=== PATIENT | male | born 1945 | race African-American/Black ===

== ENCOUNTER 2017-12-27 09:22 | Outpatient (CLI) | payer MEDICARE ==
[2017-12-27] MEDS ORDERED: Iopamidol 370 76% 100 ML VIAL ONE (12:31)
== END 2017-12-27 09:23 | disposition home or self-care (01) ==
LOC: BICCT 09:22
PROVIDERS: ATTEND Internal Medicine Gastroenterology
DX: K59.00 Constipation, unspecified (principal); R63.4 Abnormal weight loss; R93.3 Abnormal findings on diagnostic imaging of other parts of digestive tract
CPT/HCPCS: 74177

== ENCOUNTER 2018-01-10 13:25 | Outpatient (CLI) | payer MEDICARE ==
[2018-01-10] MEDS ORDERED: Gadobenate Dimeglumine 529 MG/1 ML (20ML VIAL) ONE (13:30)
--- NOTE | 2018-01-10 14:57 | MRI ---
BRAIN MRI WITH AND WITHOUT CONTRAST: COMPARISON: 12/14/16, 10/28/15. HISTORY: Malignant neoplasm of the brain, unspecified. Followup examination. TECHNIQUE: Brain MRI was performed with and without intravenous Gadolinium administration. Multisequential, mul tiplanar imaging was performed. FINDINGS: Stable hemosiderin deposition in the posterior right temporal lobe. No evidence of acute parenchymal hemorrhage. No significant T2 or FLAIR white matter hyperintensities. Central arterial flow voids are maintained . Absent restricted diffusion. Mucosal thickening of the paranasal sinuses. Right ocular lens implant. Adequate aeration of the le ft mastoid air cells. Stable postsurgical changes in the right temporal bone. Persistent signal abnormality centered in the right temporal bone extending medially into the region of the petrous apex. There is associated T2 hyperintensity and enhancement. The area of enhancement measures 2.7 cm (previously measuring 3.3 cm). No areas of abnormal intraaxial enhancement are appr eciated. Abnormal enhancement extends inferiorly along the course of the right jugular vein and dex cent to the distal cervical and petrous segment of the right internal carotid artery. There is persi stent abnormal enhancement along the clivus. No pathologic enhancement of the brain parenchyma. 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 POS: [facility]
== END 2018-01-10 13:26 | disposition home or self-care (01) ==
LOC: TBSIIMAG 13:25
PROVIDERS: ATTEND Neurological Surgery
DX: C71.9 Malignant neoplasm of brain, unspecified (principal); D16.4 Benign neoplasm of bones of skull and face
CPT/HCPCS: 70553; A9579

== ENCOUNTER 2019-01-12 11:58 | Emergency (ER) | payer MEDICARE ==
[2019-01-12 12:37] LABS: #Basophils 0.1 thou/uL (0.0-0.2); #Eosinphils 0.2 thou/uL (0.0-0.7); #Lymphocytes 1.9 thou/uL (1.20-3.40); #Monocytes 0.6 thou/uL (0.11-0.59); #Neutrophils 1.8 thou/uL (1.40-6.50); %Basophils 1.3 % (0.0-1.0); %Eosinophils 3.6 % (0.0-10.0); %Lymphocytes 41.7 % (21.0-51.0); %Neutrophils 39.4 % (42.0-75.0); Hemoglobin 14.8 g/dL (14.0-18.0); Mean Corpuscular HGB CONC 31.6 g/dL (32.0-36.0); Mean Corpuscular Hemoglobin 26.4 pg (27.0-31.0); Mean Corpuscular Volume 83.4 fL (78.0-98.0); Platelet Count 214 thou/uL (130-400); RBC Distribution Width 13.6 % (11.5-14.5); Red Blood Cell (RBC) Count 5.61 mill/uL (4.70-6.10); White Blood Cell (WBC) Count 4.6 thou/uL (4.8-10.8)
[2019-01-12 12:58] LABS: ALT (SGPT) 10 U/L (8-55); AST (SGOT) 17 U/L (5-34); Albumin 4.2 g/dL (3.4-4.8); Alkaline Phosphatase 87 U/L (40-150); Anion Gap 14 mmol/L (10-20); BUN (Urea Nitrogen) 15 mg/dL (8.4-25.7); Bilirubin, Total 0.5 mg/dL (0.2-1.2); Calc. Creatinine Clearance 0 mL/min (70-130); Calcium 9.5 mg/dL (7.8-10.44); Carbon Dioxide 24 mmol/L (23-31); Chloride 106 mmol/L (98-107); Estimated GFR-MDRD 72; Globulin 3.4 g/dL (2.4-3.5); Glucose 91 mg/dL (83-110); Potassium 4.2 mmol/L (3.5-5.1); Protein, Total 7.6 g/dL (5.8-8.1); Sodium 140 mmol/L (136-145)
--- NOTE | 2019-01-12 14:18 | RAD ---
LEFT FOOT TWO VIEWS: HISTORY: Foot pain. COMPARISON: None. FINDINGS: Only two views of the foot are sent for interrogation. No acute fracture or malalignment. There is an old medial hallux sesamoid fracture. Lisfranc interval appears to be maintained. No erosions or periostitis. IMPRESSION: No radiographic appearance of osteomyelitis. If there is clinical concern, MRI is recommended. POS: [facility]
== END 2019-01-12 15:17 | disposition home or self-care (01) ==
LOC: ERS 11:58
DX: E11.621 Type 2 diabetes mellitus with foot ulcer (principal); L97.529 Non-pressure chronic ulcer of other part of left foot with unspecified severity; I10 Essential (primary) hypertension; E66.9 Obesity, unspecified; Z79.899 Other long term (current) drug therapy
CPT/HCPCS: 36415; 80053; 85025

== ENCOUNTER 2019-01-18 09:06 | Outpatient (CLI) | payer MEDICARE ==
[2019-01-18] MEDS ORDERED: Lidocaine 2% 11 ML SYR ONE (18:00)
[2019-01-18] MEDS ORDERED: Sodium Chloride 0.9% 15 ML NEB ONE (18:00)
--- NOTE | 2019-01-18 22:47 | HP ---
HISTORY OF PRESENT ILLNESS: Mr. Ralph Peters is a very pleasant 73-year-old gentleman who presents to the Wound Center for evaluation of an ulceration of the plantar surface of the left medial forefoot. The patient is accompanied by his son. He states that the ulceration was first noted approximately 3 weeks ago. He states he is not sure as to what caused the ulceration. He states that he may have stepped on a scorpion or alternatively burned his left medial plantar forefoot from hot water. The patient states that he was seen at a clinic for the ulceration and from there, referred to the emergency department. He states that after being seen in the emergency department at [facility], he was referred to the Wound Center for further evaluation and treatment. The patient states that he has been dressing the ulceration with triple antibiotic ointment followed by Bordered gauze on a daily basis after cleansing and irrigation. PAST MEDICAL HISTORY: 1. Diabetes mellitus. 2. Hypertension. PAST SURGICAL HISTORY: 1. Craniotomy for resection of tumor. 2. Shunt placement prior to craniotomy. MEDICATIONS: 1. Amlodipine. 2. Vitamin A. 3. Multivitamin. 4. Fish oil. 5. Dulcolax. 6. Vinegar tablet. 7. Amlodipine. 8. Vitamin A. 9. Multivitamin. 10. Fish oil. 11. Dulcolax. 12. Vinegar tablet. 13. Cream for eczema. ALLERGIES: VITAMIN C, STATINS, LIPITOR, SHELLFISH. SOCIAL HISTORY: Social history is negative for tobacco use. The patient admits to only the occasional consumption of alcohol. FAMILY HISTORY: Family history is negative for diabetes mellitus or coronary artery disease. PHYSICAL EXAMINATION: VITAL SIGNS: Temperature 98.1, pulse 100, respirations 20, blood pressure 197/101. GENERAL: A 73-year-old gentleman, sitting on table in examination room, in no acute distress. HEENT: Normocephalic and atraumatic. NECK: No nuchal rigidity. CHEST: Clear to auscultation. CV: Regular rate and rhythm. ABDOMEN: Soft. EXTREMITIES: An ulceration of the plantar surface of the left medial forefoot is present. The dimensions of the wound are approximately 1.8 x 1.1 cm. Granulation tissue is present within the wound margins. Necrotic and nonviable tissue present within the wound margins which was debrided with an excisional full-thickness debridement with the use of a curette. No purulent drainage is associated with the wound. No erythema of the skin surrounding the wound is present. No maceration of the skin of the periwound is noted. A dorsalis pedis pulse and posterior tibial pulse are both palpable on the left. No significant edema of the left foot is appreciated on exam today. 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 ASSESSMENT AND PLAN: 1. Ulceration of plantar surface of left medial forefoot. Dressing changes of Medihoney and Mepilex border will be initiated today. These dressing changes are to be performed 3 times per week after cleansing and irrigation with the assistance of Home Health. 4x4s will be utilized as needed at the time of dressing changes. No antibiotics will be prescribed today based upon the appearance of the wound. I will see Mr. Peters again in 1 week. The patient will also be seen by the sander operator for fitting with diabetic shoes with inserts at the time of one of his followup visits. 2. Diabetes mellitus. The patient has been told that for optimal wound healing his blood glucoses should remain below 150. 3. Hypertension. Job ID: [id number]
== END 2019-01-18 09:07 | disposition home or self-care (01) ==
LOC: WCC 09:06
PROVIDERS: ATTEND Family Medicine
DX: E11.621 Type 2 diabetes mellitus with foot ulcer (principal); L97.429 Non-pressure chronic ulcer of left heel and midfoot with unspecified severity; I10 Essential (primary) hypertension
CPT/HCPCS: A4218

== ENCOUNTER 2019-01-31 09:36 | Outpatient (CLI) | payer MEDICARE ==
--- NOTE | 2019-01-31 10:09 | PRG ---
DATE OF SERVICE: 01/31/2019 HISTORY: Mr. Ralph Peters is a very pleasant 73-year-old gentleman, who presents to the Wound Center for evaluation of an ulceration of the plantar surface of the left medial forefoot. The patient previously stated that the ulceration was first noted approximately 3 weeks prior to his initial presentation to the Wound Center. He stated that he was not sure as to what caused the ulceration. He stated that he may have stepped on a scorpion or alternatively burned his left medial plantar forefoot from hot water. The patient stated that he was seen at a clinic for the ulceration, and from there, referred to the emergency department. He stated that after being seen in the emergency department at [facility], he was referred to the Wound Center for further evaluation and treatment. The patient stated that he had been dressing the ulceration with triple antibiotic ointment followed by Bordered gauze on a daily basis after cleansing and irrigation prior to being seen in the Wound Center. PHYSICAL EXAMINATION: VITAL SIGNS: Temperature 97.6, pulse 92, respirations 17, blood pressure 190/96. EXTREMITIES: An ulceration of the plantar surface of the left medial forefoot is present. The dimensions of the wound are approximately 1.2 x 1.0 cm. Granulation tissue is present within the wound margins. Necrotic and nonviable tissue present within the wound margins was debrided with an excisional full-thickness debridement with the use of a curette. Callus and desiccated tissue at the periphery of the wound were excised with the use of scissors. No purulent drainage is associated with the wound. No erythema of the skin surrounding the wound is present. No maceration of the skin of the periwound is noted. No significant edema of the left foot is present on exam today. ASSESSMENT AND PLAN: 1. Ulceration of plantar surface of left medial forefoot. Dressing changes of Medihoney and Mepilex border will be continued 3 times per week after cleansing and irrigation with the assistance of Home Health. 4x4's will be utilized as needed at the time of dressing changes. I will see Mr. Peters again in 2 weeks. The patient has been seen by the bulk tank car unloader today for fitting with diabetic shoes with inserts. 2. Diabetes mellitus. The patient has been reminded that for optimal wound healing, his blood glucoses should remain below 150. Accu-Cheks will be obtained at the time of the patient's clinic visits. 3. Hypertension. Job ID: [id number]
[2019-01-31] MEDS ORDERED: Lidocaine 2% 11 ML SYR ONE (18:00)
[2019-01-31] MEDS ORDERED: Sodium Chloride 0.9% 15 ML NEB ONE (18:00)
== END 2019-01-31 09:37 | disposition home or self-care (01) ==
LOC: WCC 09:36
PROVIDERS: ATTEND Family Medicine
DX: E11.621 Type 2 diabetes mellitus with foot ulcer (principal); L97.429 Non-pressure chronic ulcer of left heel and midfoot with unspecified severity; I10 Essential (primary) hypertension
CPT/HCPCS: 11042; A4218

== ENCOUNTER 2019-02-14 15:34 | Outpatient (CLI) | payer MEDICARE ==
--- NOTE | 2019-02-14 09:58 | PRG ---
DATE OF SERVICE: 02/14/2019 HISTORY: Mr. Ralph Peters is a very pleasant 73-year-old gentleman, who presents to the wound center for evaluation of an ulceration of the plantar surface of the left medial forefoot. The patient previously stated that the ulceration was first noted approximately 3 weeks prior to his initial presentation to the wound center. He stated that he was not sure as to what caused the ulceration. He stated that he may have stepped on a scorpion or alternatively burned his left medial plantar forefoot from hot water. The patient stated that he was seen at the clinic for the ulceration and from there, referred to the Emergency Department. He stated that after being seen in the Emergency Department at [facility], he was referred to the wound center for further evaluation and treatment. The patient stated that he had been dressing the ulceration with triple antibiotic ointment followed by Bordered gauze on a daily basis after cleansing and irrigation prior to being seen in the wound center. After being seen in the wound center, the patient was placed on dressing changes of Medihoney. PHYSICAL EXAMINATION: VITAL SIGNS: Temperature 97.7, pulse 78, respirations 19, and blood pressure 197/93. EXTREMITIES: The ulceration of the plantar surface of the left medial forefoot measures approximately 3.2 x 1.0 cm. Nonviable tissue associated with the wound was debrided with an excisional partial thickness debridement with the use of scissors and a curette. No purulent drainage is associated with the wound. No erythema of the skin surrounding the wound is present. No maceration of the skin of the periwound is noted. No significant edema of the left foot is present on exam today. ASSESSMENT AND PLAN: 1. Ulceration of plantar surface of left medial forefoot. The wound is healing without complications or any signs of infection. The patient will return to clinic in 1 to 2 weeks. At this time, he will also be seen by the pet nutrition specialist for fitting with diabetic shoes with inserts. 2. Diabetes mellitus. The patient has been reminded that for optimal wound healing his blood glucoses should remain below 150. Accu-Cheks will be obtained at the time of the patient's clinic visits. 3. Hypertension. Job ID: [id number]
[~2019-02-14 15:34] MED LIST: Sodium Chloride 0.9% 15 ML NEB ONE
== END 2019-02-14 15:35 | disposition home or self-care (01) ==
LOC: WCC 15:34
PROVIDERS: ATTEND Family Medicine
DX: E11.622 Type 2 diabetes mellitus with other skin ulcer (principal); L97.429 Non-pressure chronic ulcer of left heel and midfoot with unspecified severity; I10 Essential (primary) hypertension
CPT/HCPCS: 97597; A4218

== ENCOUNTER 2020-01-29 13:21 | Outpatient (CLI) | payer MEDICARE ==
[2020-01-29] MEDS ORDERED: Magnevist 469MG/ML 20 ML VIAL ONE (14:22)
--- NOTE | 2020-01-29 15:00 | MRI ---
BRAIN MRI WITH AND WITHOUT CONTRAST: 01/29/20 COMPARISON: Numerous prior brain MRIs dating back to 2015. HISTORY: Brain neoplasm. TECHNIQUE: Multiplanar and multisequence MR imaging of the brain is provided with and without contrast. FINDINGS: The diffusion weighted imaging demonstrates no evidence for acute infarction. The paranasal sinuses appear grossly unremarkable. The axial gradient echo imaging demonstrates no evidence for intracranial hemorrhage. There is no mid line shift or mass effect. No ventricular enlargement is noted. Arterial flow voids at the axial level of the skull base appear grossly unremarkable on the T2 weight ed imaging. There is diffuse dural thickening and dural enhancement involving the supratentorial and infratentori al regions, right greater than left, unchanged when compared to the 2019 examination. There is postsurgical distortion of the mastoid air cells on the right, stable when compared to the p rior examination. There is an ill-defined area of enhancement involving the inferior/medial aspect of the mastoid air cells, petrous apex on the right posterior to the distal cervical aspect of the left internal carotid artery. On this examination, this area of enhancement centered in the petrous apex measures 4.7 cm in transverse dimension, 1.7 cm in AP dimension, and approximately 1.9 cm in greatest craniocaudal dimension, unchanged when compared to the 01/10/18 exam. The postcontrast imaging demons trates no abnormal intra-axial enhancement. There is no midline shift or mass effect appreciated. IMPRESSION: Stable contrast enhanced brain MRI. There is a stable enhancing mass associated with the medial aspec t of the right temporal bone in the region of the petrous apex. Findings appear unchanged when compared to studies dating back to 2014. POS: [facility]
== END 2020-01-29 13:22 | disposition home or self-care (01) ==
LOC: TBSIIMAG 13:21
PROVIDERS: ATTEND Neurological Surgery
DX: C71.9 Malignant neoplasm of brain, unspecified (principal); G93.89 Other specified disorders of brain
CPT/HCPCS: 70553; 82565; A9579

== ENCOUNTER 2021-11-01 15:41 | Inpatient (IN) | payer MEDICARE ==
[~2021-11-01 15:41] MED LIST changes: +Iopamidol-370 76% 500 ML 1 ML ONE; -Sodium Chloride 0.9% 15 ML NEB ONE
[2021-11-01] MEDS ORDERED: Cefepime 2 GM VIAL ONE (16:19)
[2021-11-01 16:32] LABS: #Basophils 0.1 thou/uL (0.0-0.2); #Eosinphils 0.1 thou/uL (0.0-0.7); #Lymphocytes 1.5 thou/uL (1.20-3.40); #Monocytes 1.1 thou/uL (0.11-0.59); #Neutrophils 5.7 thou/uL (1.40-6.50); %Basophils 0.9 % (0.0-1.0); %Eosinophils 0.7 % (0.0-10.0); %Lymphocytes 17.4 % (21.0-51.0); %Monocytes 13.3 % (0.0-10.0); %Neutrophils 67.7 % (42.0-75.0); Hemoglobin 13.7 g/dL (14.0-18.0); Mean Corpuscular HGB CONC 33.5 g/dL (32.0-36.0); Mean Corpuscular Volume 80.7 fL (78.0-98.0); Platelet Count 344 thou/uL (130-400); RBC Distribution Width 13.9 % (11.5-14.5); Red Blood Cell (RBC) Count 5.08 mill/uL (4.70-6.10); White Blood Cell (WBC) Count 8.3 thou/uL (4.8-10.8)
[2021-11-01 16:52] LABS: ALT (SGPT) 35 U/L (8-55); AST (SGOT) 31 U/L (5-34); Alkaline Phosphatase 93 U/L (40-110); Anion Gap 14 mmol/L (10-20); BUN (Urea Nitrogen) 14 mg/dL (8.4-25.7); Bilirubin, Total 0.4 mg/dL (0.2-1.2); Calc. Creatinine Clearance 0 mL/min (70-130); Carbon Dioxide 24 mmol/L (23-31); Chloride 100 mmol/L (98-107); Globulin 4.3 g/dL (2.4-3.5); Glucose 120 mg/dL (83-110); Protein, Total 7.3 g/dL (5.8-8.1); Sodium 134 mmol/L (136-145)
[2021-11-01] MEDS ORDERED: Vancomycin 1 GM/200 ML BAG ONE (18:58)
[2021-11-01] MEDS ORDERED: Ondansetron PF 4 MG/2 ML Vial IVP PRN (20:50)
[2021-11-01] MEDS ORDERED: Acetaminophen 325 MG TAB PO PRN (20:50)
[2021-11-01 21:09] VITALS: BMI 37.0
[2021-11-02] MEDS: HYDROcodone/Acetaminophen 5/325 mg Tablet PO PRN (01:15)
[2021-11-02] MEDS: Cefepime 2 GM in Sodium Chloride 0.9% 100 ML IVPB SCH ×2 (04:27→15:55)
[2021-11-02 07:55] LABS: Anion Gap 13 mmol/L (10-20); BUN (Urea Nitrogen) 14 mg/dL (8.4-25.7); Calc. Creatinine Clearance 94 mL/min (70-130); Calcium 8.6 mg/dL (7.8-10.44); Carbon Dioxide 23 mmol/L (23-31); Chloride 101 mmol/L (98-107); Glucose 94 mg/dL (83-110); Potassium 4.1 mmol/L (3.5-5.1); Sodium 133 mmol/L (136-145)
[2021-11-02 08:04] LABS: Hemoglobin 12.9 g/dL (14.0-18.0); Mean Corpuscular HGB CONC 31.5 g/dL (32.0-36.0); Mean Corpuscular Hemoglobin 25.3 pg (27.0-31.0); Mean Corpuscular Volume 80.3 fL (78.0-98.0); Mean Platelet Volume 6.3 fL (7.4-10.4); Platelet Count 349 thou/uL (130-400); RBC Distribution Width 13.8 % (11.5-14.5); White Blood Cell (WBC) Count 7.8 thou/uL (4.8-10.8)
[2021-11-02 08:18] LABS: Hemoglobin A1c 5.7 % (4.0-6.0)
[2021-11-02] MEDS ORDERED: FLU VACC QS2021-22(65YR UP)/PF 240 MCG/0.7 ML SYRINGE IM ONE (09:00)
[2021-11-02 11:18] LABS: Band 7 % (5-11); Eosinophils 1 % (0-10); Lymphocytes 25 % (21-51); MDiff Complete? YES; Metamyelocyte 2 % (0-0); Monocytes 13 % (0-10); Myelocyte 1 % (0-0); Neutrophil 50 % (42-75); RBC Morphology Normal; Reactive Lymphocytes 2 % (0-10)
[2021-11-02 14:37] LABS: SARS-CoV-2 PCR by NAA Not Detected (NotDetected)
[2021-11-02] MEDS ORDERED: hydrALAZINE 20 MG/ML VIAL SLOW IVP PRN (17:24)
[2021-11-02] MEDS: VANCOMYCIN 2 GRAM/400 ML BAG 2 GM in Premix Bag 1 BAG IVPB SCH (17:54)
[2021-11-02] MEDS ORDERED: Melatonin 3 MG TAB PO SCH (19:08)
[2021-11-02] MEDS: Enoxaparin Sodium 40 MG/0.4 ML SYRINGE SC SCH (20:53)
[2021-11-03] MEDS: Cefepime 2 GM in Sodium Chloride 0.9% 100 ML IVPB SCH ×2 (03:53→15:40)
[2021-11-03] MEDS: HYDROcodone/Acetaminophen 5/325 mg Tablet PO PRN ×3 (06:03→22:17)
[2021-11-03] MEDS: Aspirin Chewable 81 MG TAB PO SCH (08:56)
[2021-11-03] MEDS ORDERED: Lidocaine 2% Jelly 5 ML TUBE ONE (13:02)
[2021-11-03] MEDS ORDERED: Lidocaine 1% w/Epinephrine 1:100K 20 ML VIAL ONE (13:02)
[2021-11-03] MEDS ORDERED: Bupivacaine 0.25% 10 ML VIAL ONE (13:02)
[2021-11-03] MEDS ORDERED: Fentanyl 100 MCG/2 ML VIAL ONE (13:31)
[2021-11-03] MEDS ORDERED: Ketorolac Tromethamine 30 MG/ML VIAL ONE (13:47)
[2021-11-03] MEDS ORDERED: Ondansetron PF 4 MG/2 ML Vial ONE (13:47)
[2021-11-03] MEDS ORDERED: Lidocaine 1% PF 5 ML VIAL ONE (13:47)
[2021-11-03] MEDS ORDERED: diphenhydrAMINE 50 MG/ML VIAL ONE (13:47)
[2021-11-03] MEDS ORDERED: PROPOFOL 200 MG/20 ML VIAL ONE (13:47)
[2021-11-03] MEDS ORDERED: Promethazine HCl 25 MG/ML VIAL IVPB PRN (14:12)
[2021-11-03] MEDS ORDERED: Meperidine HCl/PF 25 MG/ML VIAL SLOW IVP PRN (14:12)
[2021-11-03] MEDS ORDERED: Promethazine HCl 25 MG/ML VIAL IM PRN (14:12)
[2021-11-03] MEDS ORDERED: PACU-Morphine 4MG/ML VIAL SLOW IVP PRN (14:12)
[2021-11-03] MEDS: Amlodipine 10 MG TAB PO SCH (15:40)
[2021-11-03] MEDS: Morphine 4 MG/ML VIAL SLOW IVP PRN (15:46)
[2021-11-03 17:44] LABS: Vancomycin, Trough 8.2 ug/mL
[2021-11-03] MEDS: VANCOMYCIN 2 GRAM/400 ML BAG 2 GM in Premix Bag 1 BAG IVPB SCH (18:42)
[2021-11-03] MEDS ORDERED: Vancomycin 1.5 GRAM/300 ML BAG 1.5 GM in Premix Bag 1 BAG IVPB SCH (18:45)
[2021-11-03] MEDS: Enoxaparin Sodium 40 MG/0.4 ML SYRINGE SC SCH (19:58)
[2021-11-04] MEDS: Cefepime 2 GM in Sodium Chloride 0.9% 100 ML IVPB SCH ×2 (03:42→16:45)
[2021-11-04] MEDS: Morphine 4 MG/ML VIAL SLOW IVP PRN ×2 (03:46→11:56)
[2021-11-04] MEDS ORDERED: Vancomycin 1.5 GRAM/300 ML BAG 1.5 GM in Premix Bag 1 BAG IVPB SCH (06:00)
[2021-11-04] MEDS: Amlodipine 10 MG TAB PO SCH (09:23)
[2021-11-04] MEDS: Aspirin Chewable 81 MG TAB PO SCH (09:24)
[2021-11-04] MEDS: HYDROcodone/Acetaminophen 5/325 mg Tablet PO PRN ×2 (09:27→16:49)
[2021-11-04] MEDS ORDERED: Bisacodyl 5 MG TAB PO PRN (09:30)
[2021-11-04] MEDS ORDERED: Milk Of Magnesia 30 ML UDCUP PO PRN (17:38)
[2021-11-04 18:27] LABS: Vancomycin, Trough 18.9 ug/mL
[2021-11-04 21:37] VITALS: TEMP 97.7
[2021-11-04] MEDS: Enoxaparin Sodium 40 MG/0.4 ML SYRINGE SC SCH (22:09)
[2021-11-05] MEDS: HYDROcodone/Acetaminophen 5/325 mg Tablet PO PRN ×2 (03:35→11:30)
[2021-11-05] MEDS: Cefepime 2 GM in Sodium Chloride 0.9% 100 ML IVPB SCH (03:36)
[2021-11-05 08:25] VITALS: BP 144/81
[2021-11-05] MEDS: Amlodipine 10 MG TAB PO SCH (08:42)
[2021-11-05] MEDS: Aspirin Chewable 81 MG TAB PO SCH (08:42)
[2021-11-05] MEDS ORDERED: Polyethylene Glycol 3350 17 GM Packet PO SCH (09:00)
[2021-11-05] MEDS ORDERED: Saccharomyces boulardii 250 MG CAP PO SCH (09:00)
[2021-11-05] MEDS: Morphine 4 MG/ML VIAL SLOW IVP PRN (09:12)
== END 2021-11-05 13:58 | disposition home health service (06) | DRG 346 ==
LOC: ERS 15:41 → T4-B 18:33
PROVIDERS: ADMIT Internal Medicine; ATTEND Internal Medicine
PROC: 0D9P0ZZ Drainage of Rectum, Open Approach (ICD-10-PCS; principal; 2021-11-03)
DX: K61.1 Rectal abscess (principal); Z20.822 Contact with and (suspected) exposure to COVID-19; H54.8 Legal blindness, as defined in USA; I10 Essential (primary) hypertension; E11.9 Type 2 diabetes mellitus without complications; E78.5 Hyperlipidemia, unspecified; K59.00 Constipation, unspecified; B96.20 Unspecified Escherichia coli [E. coli] as the cause of diseases classified elsewhere; Z91.013 Allergy to seafood; Z79.899 Other long term (current) drug therapy; Z79.82 Long term (current) use of aspirin
CPT/HCPCS: 36415; 36416; 74177; 80048; 80053; 80202; 83036; 83605; 85025; 87040; 87070; 87077; 87186; 87205; 88304; J0692; J1200; J1650; J1885; J2270; J2405; J2704; J3010; J3370; J3490; Q9967; S0020; U0003; U0005

== ENCOUNTER 2023-04-05 15:59 | Inpatient (IN) | payer MEDICARE ==
[~2023-04-05 15:59] MED LIST changes: +Iopamidol 370 76% 100 ML VIAL ONE; -Iopamidol-370 76% 500 ML 1 ML ONE
[2023-04-05 16:56] LABS: #Monocytes 0.5 thou/uL (0.11-0.59); #Neutrophils 5.8 thou/uL (1.40-6.50); %Basophils 0.1 % (0.0-1.0); %Lymphocytes 12.8 % (21.0-51.0); %Monocytes 6.4 % (0.0-10.0); %Neutrophils 80.3 % (42.0-75.0); Hemoglobin 15.2 g/dL (14.0-18.0); Mean Corpuscular HGB CONC 31.3 g/dL (32.0-36.0); Mean Corpuscular Hemoglobin 25.2 pg (27.0-31.0); Mean Corpuscular Volume 80.4 fl (78.0-98.0); Mean Platelet Volume 9.1 fL (7.4-10.4); Platelet Count 257 10x3/uL (130-400); RBC Distribution Width 14.6 % (11.5-14.5); Red Blood Cell (RBC) Count 6.03 mill/uL (4.70-6.10); White Blood Cell (WBC) Count 7.2 10x3/uL (4.8-10.8)
[2023-04-05 17:20] LABS: ALT (SGPT) 245 U/L (8-55); AST (SGOT) 287 U/L (5-34); Albumin 4.3 g/dL (3.4-4.8); Alkaline Phosphatase 183 U/L (40-110); Anion Gap 11 mmol/L (10-20); BUN (Urea Nitrogen) 18 mg/dL (8.4-25.7); Bilirubin, Total 2.4 mg/dL (0.2-1.2); Calc. Creatinine Clearance 0 mL/min (70-130); Calcium 9.7 mg/dL (7.8-10.44); Carbon Dioxide 27 mmol/L (23-31); Chloride 100 mmol/L (98-107); Estimated GFR 79; Glucose 149 mg/dL (83-110); Lipase 15 U/L (8-78); Potassium 4.3 mmol/L (3.5-5.1); Protein, Total 8.3 g/dL (5.8-8.1); Sodium 134 mmol/L (136-145)
[2023-04-05] MEDS ORDERED: Ondansetron PF 4 MG/2 ML Vial ONE ×2 (19:18→20:05)
[2023-04-05] MEDS ORDERED: Morphine 4 MG/ML VIAL ONE (20:04)
[2023-04-05] MEDS ORDERED: Acetaminophen 325 MG TAB PO PRN (23:15)
[2023-04-05] MEDS ORDERED: Ondansetron PF 4 MG/2 ML Vial IVP PRN (23:15)
[2023-04-05] MEDS ORDERED: Ondansetron ODT 4 MG TAB SL PRN (23:15)
[2023-04-05 23:31] VITALS: BMI 36.9
[2023-04-06] MEDS: Sodium Chloride 0.9% 1,000 ML IV SCH ×4 (00:05→05:31)
[2023-04-06] MEDS ORDERED: Ipratropium/Albuterol 3 ML NEB NEB PRN (03:06)
[2023-04-06] MEDS ORDERED: Cyclobenzaprine 10 MG TAB PO PRN (03:06)
[2023-04-06] MEDS ORDERED: traMADol HCl 50 MG TAB PO PRN (03:06)
[2023-04-06] MEDS ORDERED: Morphine 2 MG/ML VIAL SLOW IVP PRN (03:06)
[2023-04-06] MEDS: traMADol HCl 50 MG TAB PO SCH ×3 (05:23→18:38)
[2023-04-06 09:47] LABS: ALT (SGPT) 269 U/L (8-55); AST (SGOT) 203 U/L (5-34); Albumin 3.5 g/dL (3.4-4.8); Alkaline Phosphatase 159 U/L (40-110); Bilirubin, Direct 0.6 mg/dL (0.1-0.3); Bilirubin, Total 1.2 mg/dL (0.2-1.2); Protein, Total 6.7 g/dL (5.8-8.1)
[2023-04-06] MEDS: Polyethylene Glycol 3350 17 GM Packet PO SCH (12:41)
[2023-04-06] MEDS: Senokot S 8.6-50 MG TAB PO SCH ×2 (12:42→20:52)
[2023-04-06] MEDS: Methylcellulose 500 MG TAB PO SCH (20:52)
[2023-04-07] MEDS: traMADol HCl 50 MG TAB PO SCH ×4 (00:01→17:57)
[2023-04-07 05:40] LABS: #Eosinphils 0.1 thou/uL (0.0-0.7); #Monocytes 0.6 thou/uL (0.11-0.59); #Neutrophils 3.2 thou/uL (1.40-6.50); %Basophils 0.4 % (0.0-1.0); %Eosinophils 1.8 % (0.0-10.0); %Monocytes 9.6 % (0.0-10.0); %Neutrophils 55.8 % (42.0-75.0); Hemoglobin 11.8 g/dL (14.0-18.0); Mean Corpuscular HGB CONC 30.3 g/dL (32.0-36.0); Mean Corpuscular Volume 82.4 fl (78.0-98.0); Mean Platelet Volume 9.1 fL (7.4-10.4); Platelet Count 206 10x3/uL (130-400); RBC Distribution Width 15.2 % (11.5-14.5); Red Blood Cell (RBC) Count 4.72 mill/uL (4.70-6.10); White Blood Cell (WBC) Count 5.7 10x3/uL (4.8-10.8)
[2023-04-07 06:06] LABS: ALT (SGPT) 196 U/L (8-55); AST (SGOT) 89 U/L (5-34); Albumin 3.5 g/dL (3.4-4.8); Alkaline Phosphatase 135 U/L (40-110); Anion Gap 12 mmol/L (10-20); BUN (Urea Nitrogen) 26 mg/dL (8.4-25.7); Bilirubin, Direct 0.3 mg/dL (0.1-0.3); Bilirubin, Total 0.8 mg/dL (0.2-1.2); Calc. Creatinine Clearance 113 mL/min (70-130); Calcium 8.3 mg/dL (7.8-10.44); Carbon Dioxide 26 mmol/L (23-31); Chloride 106 mmol/L (98-107); Estimated GFR 75; Glucose 88 mg/dL (83-110); Potassium 3.8 mmol/L (3.5-5.1); Protein, Total 6.6 g/dL (5.8-8.1); Sodium 140 mmol/L (136-145)
[2023-04-07] MEDS: Senokot S 8.6-50 MG TAB PO SCH ×2 (12:18→20:43)
[2023-04-07] MEDS: Aspirin Chewable 81 MG TAB PO SCH (12:18)
[2023-04-07] MEDS: Methylcellulose 500 MG TAB PO SCH ×2 (12:18→20:53)
[2023-04-07] MEDS: Polyethylene Glycol 3350 17 GM Packet PO SCH (13:39)
[2023-04-07] MEDS: Amlodipine 10 MG TAB PO SCH (15:08)
[2023-04-07] MEDS ORDERED: Sodium Chloride 0.9% 1,000 ML IV SCH (16:15)
[2023-04-07] MEDS ORDERED: Lactated Ringer's 1,000 ML IV SCH (16:30)
[2023-04-08] MEDS: traMADol HCl 50 MG TAB PO SCH ×4 (00:18→19:40)
[2023-04-08] MEDS ORDERED: fentaNYL PF 100 MCG/2 ML SYRINGE ONE (06:55)
[2023-04-08] MEDS ORDERED: Lactated Ringer's 1,000 ML IV SCH (07:00)
[2023-04-08] MEDS ORDERED: Lidocaine 2% 6 ML SYR ONE (07:06)
[2023-04-08] MEDS ORDERED: Levofloxacin 500 mg/D5W 100 ml Premix Bag ONE (07:24)
[2023-04-08] MEDS ORDERED: Dexamethasone 20 MG/5 ML VIAL ONE (07:33)
[2023-04-08] MEDS ORDERED: Glycopyrrolate 0.2 MG/ML 5 ML SYRINGE ONE (07:33)
[2023-04-08] MEDS ORDERED: PROPOFOL 200 MG/20 ML VIAL ONE (07:33)
[2023-04-08] MEDS ORDERED: Lidocaine 1% PF 5 ML VIAL ONE (07:33)
[2023-04-08] MEDS ORDERED: NEOSTIGMINE 3 MG/3 ML SYR 3 MG/3 ML SYRINGE ONE (07:33)
[2023-04-08] MEDS ORDERED: Ondansetron PF 4 MG/2 ML Vial ONE (07:33)
[2023-04-08] MEDS ORDERED: Rocuronium Bromide 10 MG/ML (10ML VIAL) ONE (07:33)
[2023-04-08] MEDS ORDERED: PHENYLEPHRINE-NS 100 MCG/ML 10 ML SYRINGE ONE (07:33)
[2023-04-08] MEDS ORDERED: ePHEDrine Sulfate 50 MG/10 ML VIAL ONE (07:33)
[2023-04-08] MEDS ORDERED: Bupivacaine HCl 0.5%/Epinephrine 1:200,000/PF 30 ml Vial ONE (07:45)
[2023-04-08] MEDS: Methylcellulose 500 MG TAB PO SCH ×2 (09:00→20:35)
[2023-04-08] MEDS ORDERED: Promethazine HCl 25 MG/ML VIAL IM PRN (09:11)
[2023-04-08] MEDS ORDERED: Ondansetron HCl/PF 4 MG/2 ML Vial IVP PRN (09:11)
[2023-04-08] MEDS ORDERED: fentaNYL 50 mcg/mL 1 mL Vial ONE ×2 (09:11→09:21)
[2023-04-08] MEDS ORDERED: Morphine 2 MG/ML VIAL SLOW IVP PRN (09:50)
[2023-04-08] MEDS ORDERED: HYDROcodone/Acetaminophen 5/325 mg Tablet PO PRN ×2 (09:50)
[2023-04-08] MEDS ORDERED: Acetaminophen 325 MG TAB PO PRN (09:50)
[2023-04-08] MEDS ORDERED: Morphine 4 MG/ML VIAL SLOW IVP PRN (09:50)
[2023-04-08] MEDS: Polyethylene Glycol 3350 17 GM Packet PO SCH (10:52)
[2023-04-08] MEDS: Senokot S 8.6-50 MG TAB PO SCH ×2 (10:52→20:36)
[2023-04-08] MEDS: Aspirin Chewable 81 MG TAB PO SCH (10:52)
[2023-04-08] MEDS: Amlodipine 10 MG TAB PO SCH (10:52)
[2023-04-09] MEDS: traMADol HCl 50 MG TAB PO SCH ×3 (00:02→13:27)
[2023-04-09] MEDS: Methylcellulose 500 MG TAB PO SCH (09:12)
[2023-04-09] MEDS: Senokot S 8.6-50 MG TAB PO SCH (09:12)
[2023-04-09] MEDS: Amlodipine 10 MG TAB PO SCH (09:12)
[2023-04-09] MEDS: Aspirin Chewable 81 MG TAB PO SCH (09:12)
[2023-04-09] MEDS: Polyethylene Glycol 3350 17 GM Packet PO SCH (09:12)
[2023-04-09 14:24] VITALS: BP 131/81; TEMP 97.5
== END 2023-04-09 13:40 | disposition home or self-care (01) | DRG 418 ==
LOC: ERS 15:59 → T4-B 20:45
PROVIDERS: ADMIT Specialist; ATTEND Specialist
PROC: 0D9670Z Drainage of Stomach with Drainage Device, Via Natural or Artificial Opening (ICD-10-PCS; 2023-04-05)
PROC: 0FT44ZZ Resection of Gallbladder, Percutaneous Endoscopic Approach (ICD-10-PCS; principal; 2023-04-08)
DX: K81.2 Acute cholecystitis with chronic cholecystitis (principal); J98.11 Atelectasis; K56.609 Unspecified intestinal obstruction, unspecified as to partial versus complete obstruction; E11.9 Type 2 diabetes mellitus without complications; I10 Essential (primary) hypertension; E66.9 Obesity, unspecified; H54.8 Legal blindness, as defined in USA; K59.00 Constipation, unspecified; K66.0 Peritoneal adhesions (postprocedural) (postinfection); Z91.013 Allergy to seafood; Z91.09 Other allergy status, other than to drugs and biological substances
CPT/HCPCS: 36415; 71046; 74018; 74019; 74177; 74181; 74250; 76705; 80048; 80053; 80076; 83690; 85025; 88304; 93005; 96374; 96375; 96376; C1889; J1100; J1650; J1956; J2270; J2405; J2704; J3010; J7050; Q9967

== ENCOUNTER 2023-09-27 13:03 | Outpatient (CLI) | payer MEDICARE | END 2023-09-27 13:04 | disposition home or self-care (01) | LOC: MRI 13:03 | PROVIDERS: ATTEND Neurological Surgery | DX: C71.9 Malignant neoplasm of brain, unspecified (principal); R22.0 Localized swelling, mass and lump, head | CPT/HCPCS: 70553 ==

== ENCOUNTER 2023-11-29 09:40 | Outpatient (CLI) | payer MEDICARE | END 2023-11-29 09:41 | disposition home or self-care (01) | LOC: BICRAD 09:40 | PROVIDERS: ATTEND Nurse Practitioner Family | DX: R05.3 Chronic cough (principal) | CPT/HCPCS: 71046 ==

== ENCOUNTER 2025-08-07 09:06 | Outpatient (CLI) | payer MEDICARE ==
[2025-08-09 10:57] LABS: Estimated GFR - POC 62.0
== END 2025-08-07 09:07 | disposition home or self-care (01) ==
LOC: MRI 09:06
PROVIDERS: ATTEND Neurological Surgery
DX: D44.7 Neoplasm of uncertain behavior of aortic body and other paraganglia (principal); H74.8X1 Other specified disorders of right middle ear and mastoid; H70.211 Acute petrositis, right ear
CPT/HCPCS: 36415; 70553; 76376; 82565